=== PATIENT | female | born 1985 | race Caucasian/White ===

== ENCOUNTER 2017-02-10 19:17 | Inpatient (IN) | payer OTHER ==
[~2017-02-10] VITALS: Ht 172.7 cm; Wt 98.6 kg
[2017-02-10 19:20] VITALS: BP 142/84
[2017-02-10 20:24] LABS: HEMATOCRIT 42.4 % (34.6-47.8); HEMOGLOBIN 14.6 g/dL (11.7-16.4); WHITE BLOOD COUNT 11.4 x10^3/uL (3.4-10)
[2017-02-10 20:34] LABS: ASPARTATE AMINO TRANSFERASE 9 U/L (15-37); BLOOD UREA NITROGEN 13 mg/dL (7-18)
[2017-02-11] MEDS ORDERED: D5%-LACTATED RINGERS 1,000 ML IV SCH (05:13)
[2017-02-11] MEDS ORDERED: OXYTOCIN 30U/ 0.9% NaCL 500ML 500 ML IV ONE (05:13)
[2017-02-11] MEDS ORDERED: BETAMETHASONE 6 MG/ML, 5ML IM ONE ×2 (05:18→05:30)
[2017-02-11] MEDS: LACTATED RINGERS 1,000 ML IV SCH ×2 (05:24→13:19)
[2017-02-11] MEDS ORDERED: PENICILLIN GK 5,000,000 UNITS in DEXTROSE 5% 100 ML IVPB ONE (05:30)
[2017-02-11] MEDS ORDERED: FENTANYL PF 100 MCG/2ML IV PRN (05:30)
[2017-02-11] MEDS ORDERED: FENTANYL PF 100 MCG/2ML IVPush PRN (05:30)
[2017-02-11] MEDS: PENICILLIN GK 2,500,000 UNITS in DEXTROSE 5% 100 ML IVPB SCH ×5 (05:30→21:32)
[2017-02-11 05:40] LABS: HEMATOCRIT 42.1 % (34.6-47.8); HEMOGLOBIN 14.4 g/dL (11.7-16.4); WHITE BLOOD COUNT 11.7 x10^3/uL (3.4-10)
[2017-02-11 07:17] VITALS: BP 133/77
[2017-02-11] MEDS ORDERED: PREN1TAB60 PO (09:24)
[2017-02-11] MEDS ORDERED: CITA40TA12 PO (09:25)
[2017-02-12] MEDS: PENICILLIN GK 2,500,000 UNITS in DEXTROSE 5% 100 ML IVPB SCH ×2 (01:32→05:27)
[2017-02-12] MEDS ORDERED: BETAMETHASONE 6 MG/ML, 5ML IM ONE (05:30)
[2017-02-12 07:14] VITALS: BP 119/71
== END 2017-02-12 08:28 | disposition home or self-care (01) | DRG 781 ==
LOC: LDOP 19:17 → LDIP 19:44 → OBSVTOIN 19:44 → LDIP 02-11 05:31
PROVIDERS: ADMIT Obstetrics & Gynecology Maternal & Fetal Medicine; ATTEND Obstetrics & Gynecology Maternal & Fetal Medicine
DX: O46.93 Antepartum hemorrhage, unspecified, third trimester (principal); O14.93 Unspecified pre-eclampsia, third trimester; F41.9 Anxiety disorder, unspecified; Z3A.35 35 weeks gestation of pregnancy; Z82.49 Family history of ischemic heart disease and other diseases of the circulatory system; O99.343 Other mental disorders complicating pregnancy, third trimester
CPT/HCPCS: 36415; 80053; 81001; 81050; 82248; 82570; 84156; 84550; 85025; 86850; 86900; 87081; 87086; J0702; J2540; J7120

== ENCOUNTER 2017-03-06 10:26 | Outpatient (CLI) | payer OTHER ==
[~2017-03-06] VITALS: Ht 172.7 cm; Wt 99.5 kg
[~2017-03-06 10:26] MED LIST: CITA40TA12 PO; PREN1TAB60 PO
[2017-03-06 11:14] VITALS: BP 127/79
[2017-03-06 11:38] LABS: HEMATOCRIT 43.3 % (34.6-47.8); HEMOGLOBIN 14.9 g/dL (11.7-16.4); WHITE BLOOD COUNT 10.1 x10^3/uL (3.4-10)
[2017-03-06 11:47] LABS: ASPARTATE AMINO TRANSFERASE 19 U/L (15-37); BLOOD UREA NITROGEN 11 mg/dL (7-18)
== END 2017-03-06 12:27 | disposition home or self-care (01) ==
LOC: LDOP 10:26
PROVIDERS: ATTEND Obstetrics & Gynecology Maternal & Fetal Medicine
DX: O13.3 Gestational [pregnancy-induced] hypertension without significant proteinuria, third trimester (principal); O48.0 Post-term pregnancy; O99.513 Diseases of the respiratory system complicating pregnancy, third trimester; O99.343 Other mental disorders complicating pregnancy, third trimester; O62.9 Abnormality of forces of labor, unspecified; F32.9 Major depressive disorder, single episode, unspecified; J45.909 Unspecified asthma, uncomplicated; Z3A.42 42 weeks gestation of pregnancy
CPT/HCPCS: 36415; 59025; 80053; 81001; 84550; 85025; 99211; G0463

== ENCOUNTER 2017-03-21 17:55 | Inpatient (IN) | payer OTHER ==
[~2017-03-21] VITALS: Ht 172.7 cm; Wt 100.4 kg
[2017-03-21] MEDS ORDERED: OXYTOCIN 30U/ 0.9% NaCL 500ML 500 ML IV PRN (19:20)
[2017-03-21] MEDS ORDERED: OXYTOCIN 30U/ 0.9% NaCL 500ML 500 ML IV ONE (19:20)
[2017-03-21] MEDS ORDERED: TERBUTALINE 1 MG/ML, 1ML IVPush PRN (19:30)
[2017-03-21] MEDS ORDERED: ONDANSETRON 2MG/ML, 2ML IVPush PRN (19:30)
[2017-03-21] MEDS ORDERED: FENTANYL PF 100 MCG/2ML IV PRN (19:30)
[2017-03-21] MEDS ORDERED: LIDOCAINE 1%, 20ML ONE (19:32)
[2017-03-21] MEDS ORDERED: OXYTOCIN 30U/ 0.9% NaCL 500ML 500 ML ONE (19:32)
[2017-03-21] MEDS ORDERED: MISOPROSTOL 200 MCG TABLET ONE (19:33)
[2017-03-21] MEDS: LACTATED RINGERS 1,000 ML IV SCH (19:40)
[2017-03-21 19:42] LABS: PATH.CAST-FLAG NOT PRESENT; SPERM-FLAG NOT PRESENT; SRC-FLAG NOT PRESENT; XTAL-FLAG NOT PRESENT; YLC-FLAG NOT PRESENT
[2017-03-21 19:58] LABS: HEMATOCRIT 45.5 % (34.6-47.8); HEMOGLOBIN 15.4 g/dL (11.7-16.4); WHITE BLOOD COUNT 10.8 x10^3/uL (3.4-10)
[2017-03-21] MEDS: PLEASE ENTER HEIGHT AND WEIGHT MC SCH (20:00)
[2017-03-21 20:08] LABS: ASPARTATE AMINO TRANSFERASE 11 U/L (15-37); BLOOD UREA NITROGEN 15 mg/dL (7-18)
[2017-03-22] MEDS ORDERED: ONDANSETRON 2MG/ML, 2ML ONE (01:55)
[2017-03-22] MEDS ORDERED: FENTANYL PF 100 MCG/2ML ONE ×3 (01:55→04:22)
[2017-03-22] MEDS: FENTANYL PF 100 MCG/2ML IVPush PRN ×2 (01:57→03:37)
[2017-03-22] MEDS: LACTATED RINGERS 1,000 ML IV SCH (03:20)
[2017-03-22] MEDS: PLEASE ENTER HEIGHT AND WEIGHT MC SCH ×3 (04:00→20:00)
[2017-03-22] MEDS ORDERED: BUPIVACAINE 0.25% ONE (04:22)
[2017-03-22] MEDS ORDERED: FENTANYL/BUPIV./NS/PF 250 ML EPIDCONT ONE (04:22)
[2017-03-22] MEDS ORDERED: FENTANYL/BUPIV./NS/PF 250 ML EPIDCONT SCH (04:55)
[2017-03-22] MEDS ORDERED: LACTATED RINGERS 1,000 ML IV SCH (04:55)
[2017-03-22] MEDS ORDERED: ONDANSETRON 2MG/ML, 2ML IVPush PRN (05:00)
[2017-03-22] MEDS ORDERED: LACTATED RINGERS 1,000 ML IVBOLUS PRN (05:00)
[2017-03-22] MEDS ORDERED: METHYLERGONOVINE 0.2 MG/ML IM PRN (18:00)
[2017-03-22] MEDS ORDERED: ACETAMINOPHEN 325 MG TABLET PO PRN ×2 (18:00)
[2017-03-22] MEDS ORDERED: OXYcodone/APAP 5/325MG TABLET PO PRN ×2 (18:00)
[2017-03-22] MEDS ORDERED: MISOPROSTOL 200 MCG TABLET PR PRN (18:00)
[2017-03-22] MEDS ORDERED: CARBOPROST TROMETHAMINE 250 MCG/ML, 1ML IM PRN (18:00)
[2017-03-22] MEDS ORDERED: DIPH,PERTUSS(ACELL),TET VAC/PF NC IM-VACC PRN (18:00)
[2017-03-22] MEDS ORDERED: OXYTOCIN 30U/ 0.9% NaCL 500ML 500 ML ONE (19:04)
[2017-03-22] MEDS: OXYTOCIN 30U/ 0.9% NaCL 500ML 500 ML IV SCH (19:06)
[2017-03-22 20:30] VITALS: BP 125/74
[2017-03-22] MEDS: DOCUSATE 100 MG CAPSULE PO PRN (21:36)
[2017-03-22] MEDS: IBUPROFEN 600 MG TABLET PO PRN (21:36)
[2017-03-22 21:40] VITALS: BP 135/74
[2017-03-23] VITALS: BP 124/72
[2017-03-23 01:30] LABS: HEMATOCRIT 38.8 % (34.6-47.8); WHITE BLOOD COUNT 16.3 x10^3/uL (3.4-10)
[2017-03-23] MEDS: OXYTOCIN 30U/ 0.9% NaCL 500ML 500 ML IV SCH (03:40)
[2017-03-23] MEDS: PLEASE ENTER HEIGHT AND WEIGHT MC SCH (04:00)
[2017-03-23] MEDS: IBUPROFEN 600 MG TABLET PO PRN ×2 (04:05→16:50)
[2017-03-23 04:08] VITALS: BP 129/73
[2017-03-23 06:40] VITALS: BP 139/76
[2017-03-23] MEDS: DOCUSATE 100 MG CAPSULE PO PRN (08:32)
[2017-03-23] MEDS ORDERED: PRENATAL VIT/IRON/FA 1 EACH TABLET PO SCH (09:00)
[2017-03-23 12:22] VITALS: BP 118/79
[2017-03-23 19:40] VITALS: BP 125/84
== END 2017-03-23 23:22 | disposition home or self-care (01) | DRG 775 ==
LOC: LDOP 17:55 → LDIP 19:26 → 2NW 03-22 20:08
PROVIDERS: ADMIT Obstetrics & Gynecology Maternal & Fetal Medicine; ATTEND Obstetrics & Gynecology Maternal & Fetal Medicine
PROC: 10907ZC Drainage of Amniotic Fluid, Therapeutic from Products of Conception, Via Natural or Artificial Opening (ICD-10-PCS; principal; 2017-03-22)
PROC: 10E0XZZ Delivery of Products of Conception, External Approach (ICD-10-PCS; 2017-03-22)
PROC: 0KQM0ZZ Repair Perineum Muscle, Open Approach (ICD-10-PCS; 2017-03-22)
PROC: 3E0S3BZ Introduction of Anesthetic Agent into Epidural Space, Percutaneous Approach (ICD-10-PCS; 2017-03-22)
PROC: 00HU33Z Insertion of Infusion Device into Spinal Canal, Percutaneous Approach (ICD-10-PCS; 2017-03-22)
DX: O13.4 Gestational [pregnancy-induced] hypertension without significant proteinuria, complicating childbirth (principal); O48.0 Post-term pregnancy; Z3A.40 40 weeks gestation of pregnancy; Z37.0 Single live birth; O70.1 Second degree perineal laceration during delivery
CPT/HCPCS: 36415; 80053; 81001; 82248; 82570; 84156; 84550; 85025; 86850; 86900; J2405; J3010; J2590; J7120